=== PATIENT | male | born 1970 | race Caucasian/White ===

== ENCOUNTER → 2021-09-06 | Outpatient (CLI) | payer OTHER | LOC: HEART 5 13:58 | DX: R07.89 Other chest pain (principal); R42 Dizziness and giddiness; R55 Syncope and collapse ==

== ENCOUNTER → 2021-09-20 | Outpatient (CLI) | payer OTHER | LOC: HEART 5 11:00 | DX: R07.89 Other chest pain (principal); R42 Dizziness and giddiness; R55 Syncope and collapse; I08.1 Rheumatic disorders of both mitral and tricuspid valves | CPT/HCPCS: 93306 ==

== ENCOUNTER → 2021-09-29 | Outpatient (CLI) | payer OTHER | LOC: CATH 09:11 | DX: R55 Syncope and collapse (principal); R07.89 Other chest pain; R42 Dizziness and giddiness ==

== ENCOUNTER → 2022-01-27 | Outpatient (CLI) | payer OTHER | LOC: EMI 08:00 | DX: R56.9 Unspecified convulsions (principal); R55 Syncope and collapse | CPT/HCPCS: 70551 ==